=== PATIENT | male | born 1990 | race Caucasian/White ===

== ENCOUNTER 2016-09-08 16:32 | Emergency (ER) | payer OTHER ==
[~2016-09-08] VITALS: Ht 180.3 cm; Wt 66.0 kg
[2016-09-08 16:36] VITALS: BP 131/69; PULSE 86; RESP 18; TEMP 98.2; O2SAT 96
[2016-09-08 16:42] VITALS: BP 131/69; PULSE 85
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
[2016-09-08] MEDS ORDERED: HYDR-2376 PO (19:11)
== END 2016-09-08 19:44 | disposition home or self-care (01) ==
LOC: NEPA 16:32
DX: S27.0XXA Traumatic pneumothorax, initial encounter (principal); S22.41XA Multiple fractures of ribs, right side, initial encounter for closed fracture; S42.021A Displaced fracture of shaft of right clavicle, initial encounter for closed fracture; V29.3XXA Motorcycle rider (driver) (passenger) injured in unspecified nontraffic accident, initial encounter; Y93.59 Activity, other involving other sports and athletics played individually; Y92.39 Other specified sports and athletic area as the place of occurrence of the external cause
CPT/HCPCS: 29240; 71010; 94150

== ENCOUNTER → 2017-11-18 | Outpatient (CLI) | payer OTHER ==
[~2017-11-18] MED LIST: FEXO15TA PO; HYDR-2376 PO; TRIA1SPR5 EACH NARE
== END ==
LOC: CPRE 12:49
PROVIDERS: ATTEND Neurological Surgery
DX: Z01.812 Encounter for preprocedural laboratory examination (principal); Z01.818 Encounter for other preprocedural examination; M50.10 Cervical disc disorder with radiculopathy, unspecified cervical region
CPT/HCPCS: 87640; 87641

== ENCOUNTER 2017-11-21 06:24 | Observation (INO) | payer OTHER ==
[~2017-11-21] VITALS: Ht 182.9 cm; Wt 74.0 kg
[~2017-11-21 06:24] MED LIST changes: -HYDR-2376 PO
[2017-11-21] MEDS ORDERED: VANCOMYCIN HCL 500 MG ON-CALL/NS 100 ML IV SCH ×2 (06:45)
[2017-11-21] MEDS ORDERED: POVIDONE IODINE 5% (ANTISEPSIS KIT) 4 APPLICATIONS EACH NARE PRN (06:45)
[2017-11-21] MEDS ORDERED: NS 1000P @30 MLS/HR (KVO) IV SCH (06:45)
[2017-11-21] MEDS ORDERED: METOPROLOL TARTRATE 25 MG TAB PO PRN (06:45)
[2017-11-21] MEDS ORDERED: SODIUM CHLORID 0.9% 500 ML IV PRN (06:45)
[2017-11-21] MEDS ORDERED: CHLORHEXIDINE GLUCONATE 2 % 1 PACK (2 CLOTHS) TOPICAL PRN (06:45)
[2017-11-21] MEDS: LACTATED RINGER'S 1000 ML IV PRN (07:15)
[2017-11-21] MEDS ORDERED: VANCOMYCIN 1 GM/200 ML PREMIX IV SCH (07:30)
[2017-11-21] MEDS ORDERED: GELFOAM SIZE 100 ONE (07:47)
[2017-11-21] MEDS ORDERED: THROMBIN (TOPICAL) 5,000 UNIT VIAL ONE (07:47)
[2017-11-21] MEDS ORDERED: VANCOMYCIN HCL 1000 MG VIAL ONE (07:47)
[2017-11-21] MEDS ORDERED: BUPIVACAINE/EPINEPHRINE 0.5% PF 30 ML VIAL ONE (07:47)
[2017-11-21] MEDS ORDERED: PROPOFOL 500 MG/50 ML INJ 50 ML ONE (08:05)
[2017-11-21] MEDS ORDERED: ACETAMINOPHEN 1000 MG/100 ML 100 ML IV ONE (08:05)
[2017-11-21] MEDS ORDERED: PROPOFOL 500 MG/50 ML INJ 100 ML ONE (08:07)
[2017-11-21] MEDS ORDERED: DEXAMETHASONE SOD PHOS 4 MG/ML VIAL ONE (08:50)
--- NOTE | 2017-11-21 11:43 | PD.OP ---
cc: Argentina Gregg MD Operative Report Date of Surgery: Nov 21, 2017 Preoperative Diagnosis: Intractable neck pain with a left C6 radiculopathy; C5-6 disc herniation with associated spinal and foraminal stenosis Postoperative Diagnosis: Same Procedure: Anterior cervical C5-6 microdiscectomy with artificial disc replacement; microsurgical technique Anesthesia: General endotracheal by Cleo pitt Surgeon: Dileep Winters MD Apartment Maintenance(s): Naya Aceves Operation and Findings: Following administration of general endotracheal anesthesia with the neck maintained in neutral position in a collar, the patient received a gram of vancomycin and Decadron 10 mg intravenously. Sequential compression devices were placed in supine position on a Neeraj table and all pressure points adequately padded. The head secured in a donut and anterior cervical region then shaved and prepped with Chloraprep and sterilely draped with Ioban along with the usual sterile draping. A transverse skin incision on the left side of the neck was then made after infiltrating the skin with 0.5% Marcaine with epinephrine solution extending down through the platysma. At the anterior border of the sternocleidomastoid further dissection was undertaken developing a plane between the carotid sheath laterally and the trachea esophagus medially. The prevertebral fascia was exposed and dissected out. A self- retaining retractor used for exposure. The C6-7 disc space was localized with a marking the disc space and using lateral fluoroscopy. [place] distraction screws 14 mm length were placed one in the C5 and one in the C6 body for interbody distraction and exposure at the midline on AP fluoroscopy views. There was significant disc degeneration noted along with the anterior osteophytes which were resected and annulus was incised with a 15 blade and further dissection undertaken using microtechnique with microscope magnification. Diskectomy was undertaken with pituitaries and curettes. More posteriorly there was disk herniation eccentric to the left side associated thecal sac and exiting nerve root compression with foraminal stenosis which was decompressed along with removal of the posterior longitudinal ligament. The foramen was decompressed bilaterally using a Kerrison's and palpation with a nerve hook, the exiting nerve roots were felt to be free. The area was then copiously irrigated. The interspace parallel distractor placed which was then removed. The disc height, depth and width were measured and the artificial disc template with the appropriate size and a trial placed and confirmed size with AP and lateral fluoroscopy. The Mobi-C LDR artificial disc measuring 5 x 13 x 17 mm in size was then placed under AP and lateral fluoroscopy guidance which confirmed good placement. Muscular bleeding points were cauterized with bipolar cautery and Gelfoam was then also used for hemostasis which was removed. [place] distraction screws were removed and the holes plugged with bone wax. The platysma was then approximated using 3-0 Vicryl interrupted stitches and 3-0 Vicryl subcuticular stitch also placed in an interrupted fashion, and final skin closure was with Mastisol and Steri-Strips. Sterile dressing was then applied. The patient was then extubated and taken to the recovery room. There are no intraoperative complications and all sponge and needle counts were correct at the end of procedure. Estimated blood loss was about 50 cc. The patient did undergo intraoperative neurologic monitoring which remained stable throughout the surgery. Dileep Winters MD Nov 21, 2017 11:43
[2017-11-21] MEDS ORDERED: CYCLOBENZAPRINE HCL 10 MG TAB PO PRN (11:45)
[2017-11-21] MEDS ORDERED: MORPHINE SULFATE 4 MG/ML INJ IV PUSH PRN (11:45)
[2017-11-21] MEDS ORDERED: RESP: ALBUTEROL 2.5 MG/3 ML NEB (PRN) NEB (11:45)
[2017-11-21] MEDS ORDERED: MAGNESIUM HYDROXIDE SUSP 30 ML CUP PO PRN (11:45)
[2017-11-21] MEDS ORDERED: ACETAMINOPHEN 325 MG TAB PO PRN (11:45)
[2017-11-21] MEDS ORDERED: MENTHOL LOZENGE BUCCAL PRN (11:45)
[2017-11-21] MEDS ORDERED: ALUMINUM/MAGNESIUM/SIMETH 30 ML CUP PO PRN (11:45)
[2017-11-21] MEDS ORDERED: cloNIDine HCL 0.1 MG TAB PO PRN (11:45)
[2017-11-21] MEDS ORDERED: BISACODYL 10 MG SUPP RECTAL PRN (11:45)
[2017-11-21] MEDS ORDERED: METOCLOPRAMIDE HCL 10 MG/2 ML VIAL IVS PRN (11:45)
[2017-11-21] MEDS ORDERED: LACTULOSE SYRUP 20 GM/30 ML CUP PO PRN (11:45)
[2017-11-21] MEDS ORDERED: ZOLPIDEM TARTRATE 5 MG TAB PO PRN (11:45)
[2017-11-21] MEDS ORDERED: ACETAMINOPHEN/HYDROcodone 325 MG/10 MG TAB PO PRN ×2 (11:45)
[2017-11-21] MEDS ORDERED: PROMETHAZINE INJ 25 MG/ML VIAL IM PRN (11:45)
[2017-11-21] MEDS ORDERED: SENNOSIDES 8.6 MG TAB PO PRN (11:45)
[2017-11-21] MEDS ORDERED: SODIUM CHLORIDE 0.9% FLUSH 10 ML FLUSH IV FLUSH PRN (11:45)
[2017-11-21] MEDS ORDERED: PROPOFOL 200 MG/20 ML AMP IV ONE (12:00)
[2017-11-21] MEDS ORDERED: GLYCOPYRROLATE 1 MG/5 ML SYRINGE IV PUSH ONE (12:00)
[2017-11-21] MEDS ORDERED: DEXAMETHASONE SOD PHOS 4 MG/ML VIAL IV ONE (12:00)
[2017-11-21] MEDS ORDERED: ePHEDrine/NS 25 MG/5 ML SYRINGE IV ONE (12:00)
[2017-11-21] MEDS ORDERED: LIDOCAINE HCL 1% PF 5 ML SYRINGE OTHER ONE (12:00)
[2017-11-21] MEDS ORDERED: NEOSTIGMINE 5 MG/5 ML SYRINGE IV PUSH ONE (12:00)
[2017-11-21] MEDS ORDERED: ONDANSETRON HCL 4 MG/2 ML VIAL IV ONE (12:00)
[2017-11-21] MEDS ORDERED: PHENYLEPH/NS 1000 MCG/10 ML SYR IV ONE (12:00)
[2017-11-21] MEDS: DEXAMETHASONE SOD PHOS 4 MG/ML VIAL IV PUSH SCH ×3 (12:00→23:56)
[2017-11-21] MEDS ORDERED: LACTATED RINGER'S 1000 ML INJ 1,000 ML IV ONE (12:00)
[2017-11-21] MEDS ORDERED: ROCURONIUM INJ 50 MG/5 ML SYRINGE IV PUSH ONE (12:00)
[2017-11-21] MEDS ORDERED: NALOXONE HCL 4 MG/10 ML MDV ONE (12:08)
[2017-11-21] MEDS ORDERED: DO NOT ADM ANY ANTICOAGULANT DRUGS PRN (12:11)
[2017-11-21] MEDS ORDERED: MIDAZOLAM HCL 2 MG/2 ML VIAL ONE (12:26)
[2017-11-21] MEDS ORDERED: NS + KCL 20 MEQ INJ 1,000 ML IV SCH (13:00)
[2017-11-21 13:40] VITALS: BP 119/67; PULSE 87; RESP 16; TEMP 98.6; O2SAT 98
--- NOTE | 2017-11-21 15:31 | RADRPT ---
EXAM DATE: 11/21/2017 2:11 PM EDT AGE/SEX: 27 years / Male INDICATIONS: Herniated disk, artificial anterior disk. CLINICAL DATA: This is the patient's initial encounter. Patient reports that signs and symptoms have been present for 1 day and indicates a pain score of Nonresponsive. MEDICAL/SURGICAL HISTORY: Non-responsive. Non-responsive. COMPARISON: No prior exams available for comparison. FINDINGS: The examination demonstrates findings this is a with disc replacement at C5-C6. The alignment of the hardware is excellent. CONCLUSION: Uncomplicated disc replacement surgery at C5-6. Electronically signed by: Shalom Olivares MD 11/21/2017 3:29 PM EDT
[2017-11-21 16:00] VITALS: BP 128/84; PULSE 71; RESP 17; TEMP 98.3; O2SAT 98
[2017-11-21 19:40] VITALS: BP 118/61; PULSE 87; RESP 18; TEMP 98.2; O2SAT 98
[2017-11-21] MEDS: DOCUSATE SODIUM 50 MG/SENNA 8.6 MG TAB PO SCH (21:03)
[2017-11-21] MEDS: SODIUM CHLORIDE 0.9% FLUSH 10 ML FLUSH IV FLUSH SCH (21:03)
[2017-11-21 23:00] VITALS: BP 129/61; PULSE 105; RESP 18; TEMP 99; O2SAT 97
[2017-11-22 03:15] VITALS: BP 120/69; PULSE 91; RESP 18; TEMP 98.6; O2SAT 97
[2017-11-22 08:00] VITALS: BP 126/70; PULSE 82; RESP 18; TEMP 98.2; O2SAT 97
[2017-11-22] MEDS: LACTATED RINGER'S 1000 ML IV PRN (08:33)
[2017-11-22] MEDS: SODIUM CHLORIDE 0.9% FLUSH 10 ML FLUSH IV FLUSH SCH (08:33)
[2017-11-22] MEDS: DOCUSATE SODIUM 50 MG/SENNA 8.6 MG TAB PO SCH (08:34)
--- NOTE | 2017-11-22 08:48 | HHI.NSPN ---
(Stalin Erazo) History Chief Complaint: Mild incisional pain. (Stalin Erazo) Interval History 11/22/17: Pt states he is doing well. He has mild incisional discomfort. No radiculopathy or paresthesias in UEs. He is urinating well. He has good strength. He would like to go home today. (Stalin Erazo) Review of Systems General: Negative for: fever, chills, insomnia Respiratory: Negative for: shortness of breath, cough, sputum Cardiovascular: Negative for: chest pain Gastrointestinal: Negative for: nausea, vomitting, diarrhea, constipation ( Stalin Erazo) Exam Results Vital Signs Date Time Temp Pulse Resp B/P (MAP) Pulse Ox O2 Delivery O2 Flow Rate FiO2 11/22/17 03:15 98.6 91 18 120/69 (86) 97 11/21/17 13:05 Room Air 11/21/17 12:15 2 Intake and Output 11/22/17 11/22/17 11/22/17 07:59 15:59 23:59 Intake Total 720 ml Output Total 650 ml Balance 70 ml (Stalin Erazo) Physical Examination General: Pt awake and alert. He is resting comfortably in bed. Resp: CTA bilaterally. Heart: NSR no murmurs Abd: Soft positive bs Skin: No cyanosis or eyrthema. New bandage placed. Muscle: Moves UEs with good Neuro: Pt awake and alert. Follows commands well. Speech clear and appropriate. Sensation intact in UEs. (Stalin Erazo) Lab, Micro, Other Results Last Impressions Cervical Spine X-Ray 11/21/17 0000 Signed Impressions: CONCLUSION: Uncomplicated disc replacement surgery at C5-6. (Stalin Erazo) Medical Decision Making Impression and Plan A: 27 y/o M s/p C5/C6 disc replacement. Pt doing very well and will be discharged home with a soft collar P: D/C home Discussed restrictions. (Stalin Erazo) Attending Statement The exam, history, and the medical decision-making described in the above note were completed with the assistance of the mid-level provider. I reviewed and agree with the findings presented. I attest that I had a [id number] encounter with the patient on the same day, and personally performed and documented my assessment and findings in the medical record. (Dileep Winters MD) Stalin Erazo Nov 22, 2017 08:48 Dileep Winters MD Nov 22, 2017 10:30
[2017-11-22] MEDS ORDERED: PANTOPRAZOLE SOD 40 MG DELAYED RELEASE TAB PO SCH (09:00)
[2017-11-22] MEDS ORDERED: NON-FORMULARY DRUG (Fexofenadine (Allegra Allergy) 180 MG) PO SCH (09:00)
[2017-11-22] MEDS ORDERED: TRIAMCINOLONE ACETONIDE 55 MCG/ACT NASAL SPRAY 16.5 GM BTL EACH NARE SCH (09:00)
[2017-11-22] MEDS ORDERED: LORATADINE 10 MG TAB PO SCH (09:00)
== END 2017-11-22 11:13 | disposition home or self-care (01) ==
LOC: HSDC 06:24 → HSDI 11:40 → N06B 13:21
PROVIDERS: ADMIT Neurological Surgery; ATTEND Neurological Surgery
DX: M54.12 Radiculopathy, cervical region (principal); M48.02 Spinal stenosis, cervical region
CPT/HCPCS: 00600; 22856; 72040; 96365; 96375; 96376; C1889; G0378; J0131; J0690; J1100; J2250; J2310; J2370; J2405; J2710; J3010; J3370; J3480; J7120; L0120; L0150